=== PATIENT | female | born 2005 | race Caucasian/White ===

== ENCOUNTER 2025-05-09 14:35 | Emergency (ER) | payer SELFPAY ==
[~2025-05-09] VITALS: Ht 162.6 cm; Wt 62.0 kg
[2025-05-09 15:04] VITALS: O2SAT 99
[2025-05-09] MEDS ORDERED: METR45GE6 TP (17:22)
[2025-05-09] MEDS: CEFTRIAXONE SODIUM 500MG VIAL IM ONE (18:06)
[2025-05-09 18:13] VITALS: BP 115/75; PULSE 86; RESP 17; TEMP 36.9; O2SAT 100
[2025-05-09 18:38] LABS: HCG SCREEN NEGATIVE
[2025-05-12 04:07] LABS: HSV TYPE 2 SPECIFIC AB IGG Non Reactive (Non Reactive)
== END 2025-05-09 18:15 | disposition home or self-care (01) ==
LOC: ER 14:35
DX: Z11.3 Encounter for screening for infections with a predominantly sexual mode of transmission (principal); N98.9 Complication associated with artificial fertilization, unspecified
CPT/HCPCS: 86695; 86696; 81025; 84703; 86592; 36415; 96372; 99283; J0696; Z7610 ×2